=== PATIENT | female | born 1975 | race Caucasian/White ===

== ENCOUNTER → 2021-04-17 17:03 | Outpatient (BNVA) | payer OTHER, SELFPAY | PROVIDERS: PCP Nurse Practitioner Family; Visit Provider Nurse Practitioner Family | DX: K21.9 Gastro-esophageal reflux disease without esophagitis (principal); R53.83 Other fatigue; R10.12 Left upper quadrant pain; E55.9 Vitamin D deficiency, unspecified; I10 Essential (primary) hypertension; Z79.899 Other long term (current) drug therapy; Z13.6 Encounter for screening for cardiovascular disorders; R35.0 Frequency of micturition | CPT/HCPCS: 81000 ==

== ENCOUNTER → 2021-04-24 08:12 | Outpatient (BNVA) | payer OTHER, SELFPAY | PROVIDERS: PCP Nurse Practitioner Family; Visit Provider Nurse Practitioner Family | DX: R10.12 Left upper quadrant pain (principal) | CPT/HCPCS: 85025 ==

== ENCOUNTER → 2021-06-11 16:58 | Outpatient (BNVA) | payer OTHER, SELFPAY | PROVIDERS: PCP Nurse Practitioner Family; Visit Provider Obstetrics & Gynecology | DX: N95.0 Postmenopausal bleeding (principal) | CPT/HCPCS: 88305 ==

== ENCOUNTER → 2021-07-01 10:12 | Outpatient (BNVA) | payer OTHER, SELFPAY | PROVIDERS: PCP Nurse Practitioner Family; Visit Provider Nurse Practitioner Family | DX: R51.9 Headache, unspecified (principal) | CPT/HCPCS: 81003 ==

== ENCOUNTER → 2023-05-06 11:28 | Outpatient (BNVA) | payer OTHER, SELFPAY | PROVIDERS: PCP Nurse Practitioner; Visit Provider Nurse Practitioner | DX: Z12.4 Encounter for screening for malignant neoplasm of cervix (principal); N89.8 Other specified noninflammatory disorders of vagina | CPT/HCPCS: 87070; 87205; 88175 ==

== ENCOUNTER → 2023-12-23 14:56 | Outpatient (BNVA) | payer OTHER, SELFPAY | PROVIDERS: PCP Nurse Practitioner; Visit Provider Nurse Practitioner Family | DX: R14.0 Abdominal distension (gaseous) (principal); R10.9 Unspecified abdominal pain | CPT/HCPCS: 74018 ==

== ENCOUNTER → 2023-12-29 10:55 | Outpatient (BNVA) | payer OTHER, SELFPAY | PROVIDERS: PCP Nurse Practitioner; Visit Provider Nurse Practitioner Family | DX: Z13.6 Encounter for screening for cardiovascular disorders (principal); K21.9 Gastro-esophageal reflux disease without esophagitis; R53.83 Other fatigue; Z71.89 Other specified counseling; Z79.899 Other long term (current) drug therapy; R10.9 Unspecified abdominal pain; R14.0 Abdominal distension (gaseous) | CPT/HCPCS: 80053; 80061; 81003; 82150; 83036; 83690; 84439; 84443; 84481; 85025 ==

== ENCOUNTER 2024-01-27 08:32 | Outpatient (CLI) | payer OTHER, SELFPAY ==
--- NOTE | 2024-01-27 08:45 | US_ITS ---
WS: [id number] Complete ABDOMINAL ULTRASOUND HISTORY: R10.12 - Left upper quadrant pain COMPARISON: None available. Liver: 14.0 cm in length. Normal size liver and echogenicity. No bile duct dilatation or mass. Portal Vein: Normal hepatopetal flow with monophasic waveform. Gallbladder: Prior cholecystectomy. CBD: 0.6 cm Pancreas: Obscured by body habitus. Right kidney: 9.2 cm x 4.9 x 4.9 cm. Cortex:1.0 cm. Normal size and echogenicity. No hydronephrosis or mass. Left kidney: 9.4 cm x 4.3 cm x 5.2 cm. Cortex: 1.0 cm. Normal size and echogenicity. No hydronephrosis or mass. Spleen: 9.8 cm. Normal. Aorta and IVC: Unremarkable abdominal aorta and IVC. Impression: 1. Prior cholecystectomy. 2. Pancreas not visualized. 3. The remaining abdomen ultrasound is negative.
== END 2024-01-27 08:33 | disposition home or self-care (01) ==
LOC: RAD 08:33
PROVIDERS: PCP Nurse Practitioner; Visit Provider Nurse Practitioner Family
DX: R10.12 Left upper quadrant pain (principal); R14.0 Abdominal distension (gaseous); Z90.49 Acquired absence of other specified parts of digestive tract
CPT/HCPCS: 76700

== ENCOUNTER 2024-08-31 12:27 | Outpatient (CLI) | payer OTHER, SELFPAY ==
--- NOTE | 2024-08-31 13:00 | MR_ITS ---
WS: [id number] MRI LEFT KNEE NONCONTRAST TECHNIQUE: Axial PD, coronal PD fat sat, coronal PD, sagittal PD, and sagittal PD fat-sat images obta ined. CLINICAL INFORMATION: S89.92XA - Unspecified injury of left lower leg, initial ... COMPARISON: None. FINDINGS: Distal quadriceps and patella tendons are intact. Diffuse edema with small fracture involving the med ial tibial plateau. Slight associated depression. Diffuse edema. Visualized fracture line extending t o the articular surface. Small suprapatellar effusion. High-grade tear of the ACL with a few intact fibers visualized on the c oronal and axial imaging. PCL appears normal. Complex radial tear involving the posterior horn medial meniscus at the meniscal root. Diffuse intras ubstance signal normality involving the anterior horn lateral meniscus. Diffuse soft tissue edema abo ut the medial joint line. Fluid edema along the superficial and deep fibers of the MCL compatible wit h partial tear. Distal fibers appear intact. Lateral collateral ligaments and popliteus appear intact . Fluid and edema in the popliteal fossa. Mild chondromalacia patella. Medial and lateral patellar retinaculum appear intact. MR/MR knee LT wo con* [id number] IMPRESSION: 1. Minimally depressed tibial plateau fracture involving the medial tibial douglas teau at the articular surface. 2. High-grade radial tear involving the posterior horn medial meniscus at the meniscal root. 3. Grade 2 injury involving the MCL with fluid and edema along the superficial and deep fibers. 4. High-grade tear involving the ACL with a few intact fibers visualized 5. Intrasubstance signal abnormality involving the anterior horn lateral menis cus does not extend to the articular surface. 6. Small suprapatellar effusion with mild chondromalacia patella. 7. Soft tissue edema along the medial joint line with fluid and edema extendin g into the popliteal fossa. Outbridge grading: grade II: blister-like swelling/fraying of articular cartila ge extending to surface
== END 2024-08-31 12:28 | disposition home or self-care (01) ==
LOC: RAD 12:28
PROVIDERS: PCP Nurse Practitioner Family; Visit Provider Nurse Practitioner Family
DX: S82.132A Displaced fracture of medial condyle of left tibia, initial encounter for closed fracture (principal); M23.222 Derangement of posterior horn of medial meniscus due to old tear or injury, left knee; S83.412A Sprain of medial collateral ligament of left knee, initial encounter; S83.512A Sprain of anterior cruciate ligament of left knee, initial encounter; X58.XXXA Exposure to other specified factors, initial encounter
CPT/HCPCS: 73721

== ENCOUNTER → 2025-01-01 10:24 | Outpatient (BNVA) | payer OTHER, SELFPAY | PROVIDERS: PCP Nurse Practitioner Family; Visit Provider Orthopaedic Surgery | DX: M51.26 Other intervertebral disc displacement, lumbar region (principal); M54.16 Radiculopathy, lumbar region | CPT/HCPCS: 72110 ==

== ENCOUNTER 2025-01-17 06:00 | Outpatient (RCR) | payer OTHER, SELFPAY | END 2025-01-18 23:59 | disposition home or self-care (01) | LOC: WPT 06:00 | PROVIDERS: Visit Provider Orthopaedic Surgery | DX: Z98.890 Other specified postprocedural states (principal) | CPT/HCPCS: 97162 ==

== ENCOUNTER 2025-01-17 06:00 | Outpatient (RCR) | payer OTHER, SELFPAY | END 2025-01-18 23:59 | disposition home or self-care (01) | LOC: WPT 06:00 | PROVIDERS: Visit Provider Orthopaedic Surgery | DX: M54.50 Low back pain, unspecified (principal); G89.29 Other chronic pain | CPT/HCPCS: 97161 ==

== ENCOUNTER 2025-01-19 06:00 | Outpatient (RCR) | payer OTHER, SELFPAY | END 2025-02-18 23:59 | disposition home or self-care (01) | LOC: WPT 06:00 | PROVIDERS: Visit Provider Orthopaedic Surgery | DX: Z98.890 Other specified postprocedural states (principal) | CPT/HCPCS: 97110; 97112; 97530 ==

== ENCOUNTER 2025-01-19 06:30 | Outpatient (RCR) | payer OTHER, SELFPAY | END 2025-02-18 23:59 | disposition home or self-care (01) | LOC: WPT 06:30 | PROVIDERS: Visit Provider Orthopaedic Surgery | DX: M54.50 Low back pain, unspecified (principal); G89.29 Other chronic pain | CPT/HCPCS: 97110 ==

== ENCOUNTER 2025-02-19 06:00 | Outpatient (RCR) | payer OTHER, SELFPAY | END 2025-03-20 23:59 | disposition home or self-care (01) | LOC: WPT 06:00 | PROVIDERS: PCP Perfusionist; Visit Provider Orthopaedic Surgery | DX: M54.50 Low back pain, unspecified (principal); G89.29 Other chronic pain | CPT/HCPCS: 97110; 97112; 97530 ==

== ENCOUNTER 2025-02-19 06:00 | Outpatient (RCR) | payer OTHER, SELFPAY | END 2025-03-20 23:59 | disposition home or self-care (01) | LOC: WPT 06:00 | PROVIDERS: Visit Provider Orthopaedic Surgery | DX: Z47.89 Encounter for other orthopedic aftercare (principal) | CPT/HCPCS: 97110; 97530 ==

== ENCOUNTER → 2025-04-04 15:57 | Outpatient (BNVA) | payer SELFPAY | PROVIDERS: PCP Perfusionist; Visit Provider Orthopaedic Surgery | DX: M54.16 Radiculopathy, lumbar region (principal) | CPT/HCPCS: 72110 ==